=== PATIENT | male | born 1965 | race Caucasian/White ===

== ENCOUNTER 2018-02-11 05:50 | Emergency (ER) | payer OTHER ==
[~2018-02-11] VITALS: Ht 185.4 cm; Wt 149.2 kg
[2018-02-11 07:18] VITALS: BP 140/64
== END 2018-02-11 07:18 | disposition home or self-care (01) ==
LOC: ED 05:50
DX: T78.3XXA Angioneurotic edema, initial encounter (principal); I10 Essential (primary) hypertension; Z88.8 Allergy status to other drugs, medicaments and biological substances; T50.905A Adverse effect of unspecified drugs, medicaments and biological substances, initial encounter; Y92.89 Other specified places as the place of occurrence of the external cause
CPT/HCPCS: J7512